=== PATIENT | male | born 1960 ===

== ENCOUNTER 2024-07-30 15:07 | Emergency (ER) | payer OTHER ==
[~2024-07-30] VITALS: Ht 172.7 cm; Wt 72.7 kg
[2024-07-30 15:13] VITALS: BP 137/85; PULSE 76; RESP 16; TEMP 98.2; O2SAT 100
== END 2024-07-30 17:57 | disposition home or self-care (01) ==
LOC: EMS 15:07
DX: S09.90XA Unspecified injury of head, initial encounter (principal); M54.2 Cervicalgia; W22.8XXA Striking against or struck by other objects, initial encounter; Y93.89 Activity, other specified; Y92.89 Other specified places as the place of occurrence of the external cause; Y99.0 Civilian activity done for income or pay
CPT/HCPCS: 99282; Z7502